=== PATIENT | male | born 2000 | race Two or more races ===

== ENCOUNTER 2024-10-23 20:13 | Emergency (ER) | payer OTHER ==
[~2024-10-23] VITALS: Ht 170.2 cm; Wt 91.0 kg
[2024-10-23 21:30] LABS: Urine Bacteria None Seen /hpf (None Seen)
[2024-10-23 21:35] LABS: Urine Blood Negative /uL (Negative); Urine Clarity Clear (Clear); Urine Color Light-Yellow (Yellow); Urine Protein, UAD Negative (Negative); Urine Specific Gravity 1.015 (1.001-1.035); Urine Urobilinogen Normal (Negative); Urine WBC <1 /hpf (0 - 3)
--- NOTE | 2024-10-23 22:05 | ED.PDOC ---
History of Present Illness HPI Comments 24-year-old male who came to ER for back pains. Patient denies any medical problems. States for the past 5 days he has been having intermittent episodes of lower back pains, spasms, especially with movements. Two days ago, back pains will persist now associated epigastric abdominal pain, cramping, aching, nonradiating. Denies any nausea or vomiting, symptoms such as dysuria or hematuria, any flank pains. Chief Complaint: Back pain Time Seen by MD: 22:05 Primary Care Provider: None Reviewed Notes: Nurses Notes Allergies: Coded Allergies: NO KNOWN ALLERGIES (Unverified , 10/23/24) Home Meds Active Scripts Cyclobenzaprine Hcl (CYCLOBENZAPRINE HCL) 7.5 Mg Tab, 7.5 MG PO Q8HP PRN for 10 Days, #30 TAB Prov:ARI PINTO MD 10/23/24 Meloxicam (Meloxicam) 7.5 Mg Tab, 1 TAB PO DAILY PRN for 20 Days, #20 TAB 2 Refills Prov:ARI PINTO MD 10/23/24 Information Source: Patient Mode of Arrival: Ambulatory Severity: Moderate Timing: Days Duration: Intermittent Prehospital treatment: None Past Medical History PAST MEDICAL HISTORY: Denies Surgical History: Denies all surgeries Family History Family History: Reviewed,noncontributory to illness Social History Smoker: Non-Smoker Alcohol: Denies ETOH Use Drugs: Denies Drug Use Lives In: Home Constitutional: denies: chills, diaphoresis, fatigue, fever, malaise, sweats, weakness, others EENTM: denies: blurred vision, double vision, ear bleeding, ear discharge, ear drainage, ear pain, ear ringing, eye pain, eye redness, hearing loss, mouth pain, mouth swelling, nasal discharge, nose bleeding, nose congestion, nose pain, photophobia, tearing, throat pain, throat swelling, voice changes, others Respiratory: denies: cough, hemoptysis, orthopnea, SOB at rest, shortness of breath, SOB with excertion, stridor, wheezing, others Cardiovascular: denies: chest pain, dizzy spells, diaphoresis, Dyspnea on exertion, edema, irregular heart beat, left arm pain, lightheadedness, palpitations, PND, syncope, others Gastrointestinal: reports: abdominal pain; denies: abdomen distended, blood streaked bowels, constipated, diarrhea, dysphagia, difficulty swallowing, h ematemesis, melena, nausea, poor appetite, poor fluid intake, rectal bleeding, rectal pain, vomiting, others Genitourinary: denies: burning, dysuria, flank pain, frequency, hematuria, incontinence, penile discharge, penile sore, pain, testicle pain, testicle swelling, urgency, others Neurological: denies: dizziness, fainting, headache, left sided numbness, left sided weakness, numbness, paresthesia, pre-existing deficit, right sided numbness, right sided weakness, seizure, speech problems, tingling, tremors, weakness, others Musculoskeletal: reports: back pain; denies: gout, joint pain, joint swelling, muscle pain, muscle stiffness, neck pain, others Integumetry: denies: bruises, change in color, change in hair/nails, dryness, laceration, lesions, lumps, rash, wounds, others Allergic/Immunocompromised: denies: Difficulty Healing, Frequent Infections, Hives, Itching, others Hematologic/Lymphatic: denies: anemia, blood clots, easy bleeding, easy bruising, swollen glands, others Endocrine: denies: excessive hunger, excessive sweating, excessive thirst, excessive urination, flushing, intolerance to cold, intolerance to heat, unexplained weight gain, unexplained weight loss, others Psychiatric: denies: anxiety, bipolar disorder, depression, hopeless, panic disorder, schizophrenia, sleepless, suicidal, others Physical Exam General Appearance: No Apparent Distress, Normal HEENT: Normal ENT Inspection, Pharynx Normal, TMs Normal Neck: Full Range of Motion, Non-Tender, Normal, Normal Inspection Respiratory: Chest Non-Tender, Lungs Clear, No Accessory Muscle Use, No Respiratory Distress, Normal Breath Sounds Cardiovascular: No Edema, No JVD, No Murmur, No Gallop, Normal Peripheral Pulses, Regular Rate/Rhythm Breast Exam: Deferred Gastrointestinal: No Organomegaly, Non Tender, No Pulsatile Mass, Normal Bowel Sounds, Soft Genitalia: Deferred Pelvic: Deferred Rectal: Deferred Extremities: No calf tenderness, Normal capillary refill, Normal inspection, Normal range of motion, Non-tender, No pedal edema Musculoskeletal : Apperance: Normal Neurologic: Alert, manufacturer representative II-XII nml as Tested, No Motor Deficits, Normal Affect, Normal Mood, No Sensory Deficits Cerebellar Function: Normal Reflexes: Normal Skin: Dry, Normal Color, Warm Lymphatic: No Adenopathy Was a procedure done? Was a procedure done?: No Differential Dx Considerations may include: Musculoskeletal pain, lumbosacral strain, gastritis, urinary tract infection, kidney stones X-Ray, Labs, Meds, VS Vital Signs Date Time Temp Pulse Resp B/P (MAP) Pulse Ox O2 Delivery O2 Flow Rate FiO2 10/23/24 22:31 64 19 97 Room Air 10/23/24 22:31 97.8 64 19 118/73 (88) 97 97.8 10/23/24 21:10 98.2 68 18 149/91 (110) 98 Lab Test 10/23/24 21:17 Range/Units Urine Color Light-yellow Yellow Urine Clarity Clear Clear Urine pH 6.0 5.0-9.0 Urine Specific [place] 1.015 1.001-1.035 Urine Protein Negative Negative Urine Ketones Negative Negative Urine Blood Negative Negative /uL Urine Nitrite Negative Negative Urine Bilirubin Negative Negative Urine Urobilinogen Normal Negative mg/dL Urine Leukocyte Esterase Negative Negative /uL Urine RBC 1 0 - 3 /hpf Urine WBC <1 0 - 3 /hpf Urine Squamous Epithelial Cells None seen <5 /hpf Urine Bacteria None seen None Seen /hpf Urine Glucose Normal Normal mg/dL Current Medications Medications (Trade) Dose Ordered Sig/Peri Route Start Time Stop Time Status Last Admin Acetaminophen/ Hydrocodone Bitart ([place] 10/325MG Tab) 1 tab ONCE ONCE PO 10/23/24 22:15 10/23/24 22:16 DC 10/23/24 22:29 Cyclobenzaprine HCl (Flexeril Tablet) 10 mg ONCE ONCE PO 10/23/24 22:15 10/23/24 22:16 DC 10/23/24 22:29 Time of 1ST Reevaluation: 22:02 Reevaluation 1ST: Unchanged Time of 2ND Reevaluation: 23:10 Reevaluation 2ND: Improved Patient Education/Counseling: Diagnosis, Treatment Family Education/Counseling: No Family Present Departure 1 Departure Time of Disposition: 23:10 Impression: Primary Impression: Low back pain Disposition: 01 HOME / SELF CARE / HOMELESS Condition: Stable e-Prescriptions Cyclobenzaprine Hcl (CYCLOBENZAPRINE HCL) 7.5 Mg Tab 7.5 MG PO Q8HP PRN for 10 Days, #30 TAB Prov: ARI PINTO MD 10/23/24 Meloxicam (Meloxicam) 7.5 Mg Tab 1 TAB PO DAILY PRN for 20 Days, #20 TAB 2 Refills Prov: ARI PINTO MD 10/23/24 Discharged With: Self Critical Care Note Critical Care Time?: No Stability Stability form required: No Heart Score Heart Score: Heart Score Response (Comments) Value History N/A 0 EKG N/A 0 Age N/A 0 Risk Factors N/A 0 Troponin N/A 0 Total 0 I personally scribed for ARI PINTO MD ([email or web address]) on 10/23/24 at 22:05. Electronically submitted by Vish Phelan ([email or web address]). ARI PINTO MD Oct 23, 2024 22:05
[2024-10-23] MEDS ORDERED: CYCL-838 PO (22:06)
[2024-10-23] MEDS ORDERED: MELO7.5T7 PO (22:06)
[2024-10-23] MEDS: HYDROcodone-ACET 10/325MG TAB PO ONE (22:29)
[2024-10-23] MEDS: CYCLOBENZAPRINE HCL 10 MG TAB PO ONE (22:29)
[2024-10-23 22:31] VITALS: BP 118/73; PULSE 64; RESP 19; TEMP 97.8; O2SAT 97
== END 2024-10-23 22:50 | disposition home or self-care (01) ==
LOC: ER 20:13
DX: M54.59 Other low back pain (principal)
CPT/HCPCS: 81001